=== PATIENT | male | born 1965 | race Caucasian/White ===

== ENCOUNTER 2016-08-10 20:02 | Emergency (ER) | payer OTHER ==
--- NOTE | 2016-08-10 22:42 | ED NURSING NOTES ---
Clinical Report - Nurses [facility] [address] [place] [address] 08/10/2016 20:01 Patient: THERESA ORTIZ TRIAGE Triage time 20:20 Aug 10 2016. Acuity: LEVEL 3. Chief Complaint: NAUSEA, VOMITING and DIARRHEA and (since Wednesday). Alert. No acute distress. --20:33 Reina Bhakta R.N. 20:20 08/10/16. BP: 141/93. HR: 65. RR: 18. O2 saturation: 100%. Temp: 98.2 F. Pain level now 0/10. --20:33 Reina Bhakta R.N. Weight: 68 kg stated. Height/Length: 70 inches Per Patient. BMI: 21.5. --20:19 Reina Bhakta R.N. Medications Multi Vitamin Mens Oral. Vitamin c Oral. --20:21 Reina Bhakta R.N. Stool softner. --20:31 Reina Bhakta R.N. Medication/allergy information source: the patient. --20:33 Reina Bhakta R.N. Allergies Lyrica. Definite Moderate (Acts like "speed"--talks alot) Morphine Sulfate. Definite Moderate(anxiety) ("Make me violent") --20:21 Reina Bhakta R.N. History Arrived by private vehicle. Historian: patient. Primary physician (none). ( Pt states Diarrhea and Vomiting since Wednesday.). Onset. (since Wednesday). He has had vomiting and diarrhea. Last oral intake by patient was ("cant keep anything done"). 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 PAST MEDICAL HX: Has not received seasonal influenza immunization. SOCIAL HX: Smoker- current status unknown. 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 (10 yearw ago, recovering). No alcohol use. No recent travel. He has had contact with a sick individual. (skilled nursing visit). No infectious disease exposure. NUTRITIONAL RISK ASSESSMENT: The nutritional risk assessment revealed no deficiencies. FUNCTIONAL ASSESSMENT: Functional assessment: no impairments noted. LEARNING NEEDS ASSESSMENT: The learning needs assessment revealed no barriers. SKIN INTEGRITY ASSESSMENT: Skin integrity risk assessment completed. No skin integrity risk identified. --20:33 Reina Bhakta R.N. PROBLEMS: Abscess. Infections. GI Bleeding. Abnormal Test. Bursitis. Chronic Back Pain. Tetanus Status. Folliculitis. Immunizations. Depression. Headache. Back Pain. Neck Pain. --20:31 Reina Bhakta R.N. ADDITIONAL SURGERIES: Appendectomy. Back Surgery. --20:31 Reina Bhakta R.N. Interventions ID band on patient. To room. --20:33 Reina Bhakat R.N. PHYSICAL ASSESSMENT Ambulatory to room. GENERAL / NEURO / PSYCH: Oriented X 4. Appears in no acute distress. RESPIRATORY: Respirations not labored. CVS: Capillary refill less than 2 seconds. GI / : The patient has had nausea and diarrhea. Abdomen soft. SKIN: Skin is warm and dry. --22:41 Reina Bhakta R.N. NURSING PROGRESS NOTES 21:00 08/10/2016 One (1) unsuccessful IV access attempt including the right upper arm. Applied bandage. --21:40 Reina Bhakta R.N. 21:15 08/10/2016 Zofran ODT (Ondansetron) PO 4 mg given. Allergies verified and confirmed 5 rights. --22:05 Reina Bhakta R.N. 21:30 08/10/2016 Three (3) unsuccessful IV access attempts including the left upper arm and antecubital space (attempted by YAZAN Malin, using US.). --21:41 Reina Bhakta R.N. ( Pt a very difficult IV stick, 3rd RN attempting now. Zofran 4mg ODT has bee given after 15 mins spent.). --21:48 Reina Bhakta R.N. 22:05 08/10/2016 TYLENOL W CODEINE (Acetaminophen-Codeine) PO 2 tab given. Allergies verified and confirmed 5 rights. --22:05 Reina Bhakta R.N. 22:08/10/2016 TYLENOL W CODEINE (Acetaminophen-Codeine) PO 20 mL given. Allergies verified and confirmed 5 rights. --22:21 Reina Bhakta R.N. ( PA informed that IV access was unsuccessful by 3 RN's. PO it is until further notice. Pt provided ice chips, stated he felt better with the Zofran. Pt opted for liquid T3 vs PO pill.). --22:42 Reina Bhakta R.N. DISPOSITION / DISCHARGE Departure time: 23:Aug 10 2016. Condition at departure: improved and stable. No learning barriers present. Patient verbalized understanding. Written instructions provided in Arabic. The patient was discharged by the physician library services assistant. He was discharged home. He left the Emergency Department ambulatory and via private vehicle. FALL RISK ASSESSMENT: Fall risk assessment completed. No fall risk identified. --23:03 Reina Bhakta R.N. 23:01 08/10/16. BP: 130/82. HR: 99. RR: 18. O2 saturation: 100%. Pain level now 0/10. --23:03 Reina Bhakta R.N. Locked/Released at 08/10/2016 23:03 by Reina Bhakta R.N.
--- NOTE | 2016-08-10 22:42 | ED CLINICAL REPORT ---
Clinical Report - Physicians/Mid Levels [facility] [address] [place] [address] 08/10/2016 20:01 Patient: THERESA ORTIZ Time Seen: 20:51 Aug 10 2016. Arrived- By private vehicle. Historian- patient. HISTORY OF PRESENT ILLNESS Chief Complaint: COUGH. This started 5 days and is still present. The patient has had a cough, chills and muscle aches. No sputum production, difficulty breathing, hoarseness or nasal discharge. (Patient reports bodyaches fatigue, abdominal pain, diarrhea over the last 5 days. No recent travel.). REVIEW OF SYSTEMS No headache, nausea, diarrhea, pedal edema or calf pain. No skin rash. All systems otherwise negative, except as recorded above. ADDITIONAL NOTES The nursing notes have been reviewed. PHYSICAL EXAM Vital Signs: 08/10/2016 20:20 BP: 141/93. HR: 65. RR: 18. O2 saturation: 100%. Temp: 98.2 F. Appearance: Alert. Eyes: Eyes normal inspection. ENT: Ears normal. Nose normal. Pharynx normal. Neck: Normal inspection. No meningeal signs or lymphadenopathy. CVS: Normal heart rate and rhythm. Heart sounds normal. Respiratory: No respiratory distress. Breath sounds normal. No retractions or decreased breath sounds. Back: Normal inspection. No CVA tenderness. Skin: Skin warm. Normal skin color. Neuro: Oriented X 3. LABS, X-RAYS, AND EKG Laboratory Tests: CBC w Diff: (BECKIE: 08/10/2016 22:15) ( MsgRcvd 08/10/2016 22:27) Final results Test Result Flag Units (Reference) WHITE BLOOD COUNT 13.2 H K/uL (4.5-11.5) RED BLOOD COUNT 5.44 M/uL (4.50-5.90) HEMOGLOBIN 16.6 gm/dL (13.5-17.5) HEMATOCRIT 48.2 % (41.0-53.0) MEAN CELL VOLUME 89 fL (80-100) MEAN CORPUSCULAR HGB 31 pg (26-34) MEAN CORPUSCULAR HGB CONC 34 g/dL (31-37) RED CELL DISTRIBUTION WIDTH 14.1 % (11.6-14.8) PLATELET COUNT 245 K/uL (150-400) NEUTROPHIL % 75.4 H % (50-75) LYMPH % 17.9 L % (25-40) MONO % 6.3 % (3-14) EOSINOPHIL % 0 % (0-4) BASOPHIL % 0.4 % (0-2) BMP: (BECKIE: 08/10/2016 22:15) ( MsgRcvd 08/10/2016 22:33) Final results Test Result Flag Units (Reference) GLUCOSE 120 H mg/dL (70-110) BUN 15 mg/dL (7-18) CREATININE 0.7 mg/dL (0.6-1.3) Estimated GFR >60 mL/min Estimated GFR- >60 mL/min Note: Persistent reduction over 3 months in eGFR<60 mL/min/1.73 m2 defines CKD. Patients with eGFR values>=60 mL/min/1.73 m2 may also have CKD if evidence ofpersistent proteinuria. Additional information may be foundat www.kidney.org. SODIUM 145 mmol/L (136-145) POTASSIUM 3.7 mmol/L (3.5-5.1) CHLORIDE 106 mmol/L (98-107) CARBON DIOXIDE 27 mmol/L (21-32) CALCIUM 9.4 mg/dL (8.5-10.1) . PROGRESS AND PROCEDURES Course of Care: Pt is stable. TO f/u outpatient. Slight luekocytosis and pt with no guarding/ tenderness, status post appendectomy. NO signs of bowel obstruction clinically able to tolerate po. SX consistent with viral disease process. 08/10/2016 20:20 BP: 141/93. HR: 65. RR: 18. O2 saturation: 100%. Temp: 98.2 F. Patient is stable. Symptoms better. Patient/family counseled. Differential Diagnosis: I considered viral bronchitis, laryngotracheobronchitis, viral pneumonia, bacterial bronchitis, mycoplasmal bronchitis, chlamydial bronchitis, bronchospasm and allergic bronchospasm as a possible cause of cough in this patient. This is a partial list of diagnoses considered. I considered sepsis, viral infection, peritonitis, intraabdominal abscess, cholecystitis, viral gastroenteritis, bacterial enterocolitis, diverticulitis, urinary tract infection and pyelonephritis as a possible cause of fever in this patient. This is a partial list of diagnoses considered. Disposition: Discharged. CLINICAL IMPRESSION Acute abdominal pain of undetermined cause. Acute viral syndrome INSTRUCTIONS Drink plenty of fluids. Prescription Medications: Tylenol with Codeine Tylenol #3 (30 mg / 300 mg) : take 1 tablet orally every 6 hours as needed for pain. Dispense fifteen (15). No refill. Substitution is permissible. Zofran (orally disintegrating tablets) 4 mg: take 1 orally every 6 hours as needed for nausea. Dispense ten (10). No refill. Substitution is permissible. Ibuprofen 600 mg tablets: take 1 tablet orally every 8 hours for 3 days, as needed for pain. Dispense fifteen (15). No refill. Follow-up: Follow up with your doctor in three days. (Electronically signed by Joanie Talley P.A.-C 08/10/2016 22:47)
--- NOTE | 2016-08-10 22:42 | ED NURSING NOTES ---
Clinical Report - Nurses [facility] [address] [place] [address] 08/10/2016 20:01 Patient: THERESA ORTIZ TRIAGE Triage time 20:20 Aug 10 2016. Acuity: LEVEL 3. Chief Complaint: NAUSEA, VOMITING and DIARRHEA and (since Wednesday). Alert. No acute distress. --20:33 Reina Bhakta R.N. 20:20 08/10/16. BP: 141/93. HR: 65. RR: 18. O2 saturation: 100%. Temp: 98.2 F. Pain level now 0/10. --20:33 Reina Bhakta R.N. Weight: 68 kg stated. Height/Length: 70 inches Per Patient. BMI: 21.5. --20:19 Reina Bhakta R.N. Medications Multi Vitamin Mens Oral. Vitamin c Oral. --20:21 Reina Bhakta R.N. Stool softner. --20:31 Reina Bhakta R.N. Medication/allergy information source: the patient. --20:33 Reina Bhakta R.N. Allergies Lyrica. Definite Moderate (Acts like "speed"--talks alot) Morphine Sulfate. Definite Moderate(anxiety) ("Make me violent") --20:21 Reina Bhakta R.N. History Arrived by private vehicle. Historian: patient. Primary physician (none). ( Pt states Diarrhea and Vomiting since Wednesday.). Onset. (since Wednesday). He has had vomiting and diarrhea. Last oral intake by patient was ("cant keep anything done"). 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 PAST MEDICAL HX: Has not received seasonal influenza immunization. SOCIAL HX: Smoker- current status unknown. 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 (10 yearw ago, recovering). No alcohol use. No recent travel. He has had contact with a sick individual. (residential visit). No infectious disease exposure. NUTRITIONAL RISK ASSESSMENT: The nutritional risk assessment revealed no deficiencies. FUNCTIONAL ASSESSMENT: Functional assessment: no impairments noted. LEARNING NEEDS ASSESSMENT: The learning needs assessment revealed no barriers. SKIN INTEGRITY ASSESSMENT: Skin integrity risk assessment completed. No skin integrity risk identified. --20:33 Reina Bhakta R.N. PROBLEMS: Abscess. Infections. GI Bleeding. Abnormal Test. Bursitis. Chronic Back Pain. Tetanus Status. Folliculitis. Immunizations. Depression. Headache. Back Pain. Neck Pain. --20:31 Reina Bhakta R.N. ADDITIONAL SURGERIES: Appendectomy. Back Surgery. --20:31 Reina Bhakta R.N. Interventions ID band on patient. To room. --20:33 Reina Bhakta R.N. PHYSICAL ASSESSMENT Ambulatory to room. GENERAL / NEURO / PSYCH: Oriented X 4. Appears in no acute distress. RESPIRATORY: Respirations not labored. CVS: Capillary refill less than 2 seconds. GI / : The patient has had nausea and diarrhea. Abdomen soft. SKIN: Skin is warm and dry. --22:41 Reina Bhakta R.N. NURSING PROGRESS NOTES 21:00 08/10/2016 One (1) unsuccessful IV access attempt including the right upper arm. Applied bandage. --21:40 Reina Bhakta R.N. 21:15 08/10/2016 Zofran ODT (Ondansetron) PO 4 mg given. Allergies verified and confirmed 5 rights. --22:05 Reina Bhakta R.N. 21:30 08/10/2016 Three (3) unsuccessful IV access attempts including the left upper arm and antecubital space (attempted by YAZAN Malin, using US.). --21:41 Reina Bhakta R.N. ( Pt a very difficult IV stick, 3rd RN attempting now. Zofran 4mg ODT has bee given after 15 mins spent.). --21:48 Reina Bhakta R.N. 22:05 08/10/2016 TYLENOL W CODEINE (Acetaminophen-Codeine) PO 2 tab given. Allergies verified and confirmed 5 rights. --22:05 Reina Bhakta R.N. 22:08/10/2016 TYLENOL W CODEINE (Acetaminophen-Codeine) PO 20 mL given. Allergies verified and confirmed 5 rights. --22:21 Reina Bhakta R.N. ( PA informed that IV access was unsuccessful by 3 RN's. PO it is until further notice. Pt provided ice chips, stated he felt better with the Zofran. Pt opted for liquid T3 vs PO pill.). --22:42 Reina Bhakta R.N. DISPOSITION / DISCHARGE Departure time: 23:Aug 10 2016. Condition at departure: improved and stable. No learning barriers present. Patient verbalized understanding. Written instructions provided in Maori. The patient was discharged by the physician graphic design assistant. He was discharged home. He left the Emergency Department ambulatory and via private vehicle. FALL RISK ASSESSMENT: Fall risk assessment completed. No fall risk identified. --23:03 Reina Bhakta R.N. 23:01 08/10/16. BP: 130/82. HR: 99. RR: 18. O2 saturation: 100%. Pain level now 0/10. --23:03 Reina Bhakta R.N. Locked/Released at 08/10/2016 23:03 by Reina Bhakta R.N.
--- NOTE | 2016-08-10 22:42 | ED ORDER SUMMARY ---
..... Patient: THERESA ORTIZ OrderSheet [facility] VisitID: [id number] [place] [address] 51y, M Registration Date/Time: 08/10/2016 ORDER SHEET Weight: 68.0 kg (stated) Allergies: Lyrica, Morphine Sulfate GENERAL ORDERS: CBC w Diff Urgent (20:34 08/10/2016 EKoroleva P.A.-C) (Ack 20:41 LMuller) BMP Urgent (20:34 08/10/2016 EKoroleva P.A.-C) (Ack 20:41 LMuller) MEDICATION ORDERS: Zofran ODT PO 4 mg (NOW) (20:57 08/10/2016 EKoroleva P.A.-C) (22:05 SBalde R.N.) Tylenol w Codeine PO 2 tabs (HIGH ALERT MEDICATION, NOW) (22:04 08/10/2016 EKoroleva P.A.-C) (22:05 SBalde R.N.) (Cancelled: Other22:11 EKoroleva P.A.-C) Tylenol w Codeine PO 20mL (HIGH ALERT MEDICATION, NOW) (22:12 08/10/2016 EKoroleva P.A.-C) (22:21 SBalde R.N.) IV FLUIDS: IV NS : initial bolus 1000 mL (1000 mL/hr), then 1000 mL/hr for X1 (NOW); Talon (20:34 08/10/2016 EKoroleva P.A.-C) (Cancelled: Change in patient [id number]:21 SBalde R.N.) Toradol IV 30 mg (NOW) (20:34 08/10/2016 EKoroleva P.A.-C) (Cancelled: Change in patient [id number]:21 SBalde R.N.) ORDER SHEET NOTES: [Electronically signed by Joanie TalleyABrooklyn-C (22:47 08/10/2016)] [Electronically signed by Reina Bhakta R.N. (23:03 08/10/2016)] [Electronically locked/signed by Reina Bhakta R.N. (23:03 08/10/2016)]
--- NOTE | 2016-08-10 22:42 | ED ORDER SUMMARY ---
..... Patient: THERESA ORTIZ OrderSheet [facility] VisitID: [id number] [place] [address] 51y, M Registration Date/Time: 08/10/2016 ORDER SHEET Weight: 68.0 kg (stated) Allergies: Lyrica, Morphine Sulfate GENERAL ORDERS: CBC w Diff Urgent (20:34 08/10/2016 EKoroleva P.A.-C) (Ack 20:41 LMuller) BMP Urgent (20:34 08/10/2016 EKoroleva P.A.-C) (Ack 20:41 LMuller) MEDICATION ORDERS: Zofran ODT PO 4 mg (NOW) (20:57 08/10/2016 EKoroleva P.A.-C) (22:05 SBalde R.N.) Tylenol w Codeine PO 2 tabs (HIGH ALERT MEDICATION, NOW) (22:04 08/10/2016 EKoroleva P.A.-C) (22:05 SBalde R.N.) (Cancelled: Other22:11 EKoroleva P.A.-C) Tylenol w Codeine PO 20mL (HIGH ALERT MEDICATION, NOW) (22:12 08/10/2016 EKoroleva P.A.-C) (22:21 SBalde R.N.) IV FLUIDS: IV NS : initial bolus 1000 mL (1000 mL/hr), then 1000 mL/hr for X1 (NOW); Talon (20:34 08/10/2016 EKoroleva P.A.-C) (Cancelled: Change in patient [id number]:21 SBalde R.N.) Toradol IV 30 mg (NOW) (20:34 08/10/2016 EKoroleva P.A.-C) (Cancelled: Change in patient :21 SBalde R.N.) ORDER SHEET NOTES: [Electronically signed by Joanie TalleyABrooklyn-C (22:47 08/10/2016)] [Electronically signed by Reina Bhakta R.N. (23:03 08/10/2016)] [Electronically locked/signed by Reina Bhakta R.N. (23:03 08/10/2016)]
--- NOTE | 2016-08-10 23:04 | ED MED RECONCILIATION SUMMARY ---
Patient: THERESA ORTIZ Medication Reconciliation Report [facility] VisitID: [id number] [place] [address] 51y, M Registration Date/Time: 08/10/2016 Weight: 68.0 kg Height/Length: 70 in. BMI: 21.5 ALLERGIES: Lyrica, Morphine Sulfate The patient's Home Medications are listed below: THE FOLLOWING MEDICATIONS NEED TO BE RECONCILED: Multi Vitamin Mens Oral Stool softner Vitamin c Oral The source(s) of the original Home Medication information: patient The following Medications were given to the patient in the Emergency Department: Zofran ODT [PO] PO 4 mg, administered: 08/10/2016 9:15:00 PM TYLENOL W CODEINE [PO] PO 2 tab, administered: 08/10/2016 10:05:00 PM TYLENOL W CODEINE [PO] PO 20 mL, administered: 08/10/2016 10:21:00 PM The following Medications were prescribed to the patient: Tylenol with Codeine Tylenol #3 (30 mg / 300 mg) : take 1 tablet orally every 6 hours as needed for pain. Dispense fifteen (15). No refill. Substitution is permissible. -- Joanie Talley, P.A.-C Zofran (orally disintegrating tablets) 4 mg: take 1 orally every 6 hours as needed for nausea. Dispense ten (10). No refill. Substitution is permissible. -- Joanie Talley, P.A.-C Ibuprofen 600 mg tablets: take 1 tablet orally every 8 hours for 3 days, as needed for pain. Dispense fifteen (15). No refill. -- Joanie Talley, P.A.-C
--- NOTE | 2016-08-10 23:04 | ED MAR SUMMARY ---
..... Medication Administration Record [facility] [address] [place] [address] Patient: THERESA ORTIZ Visit ID: [id number] 51y, M Weight: 68.0 kg Height/Length: 70 in BMI: 21.5 ALLERGIES: Lyrica, Morphine Sulfate Given 21:15 08/10/2016 Reina Bhakta R.N. Medication Administered: ZOFRAN ODT [PO] (ONDANSETRON), Dose: 4 mg PO. Medication Ordered: Zofran ODT PO 4 mg (NOW). Given 22:05 08/10/2016 Reina Bhakta R.N. Medication Administered: TYLENOL W CODEINE [PO] (ACETAMINOPHEN-CODEINE), Dose: 2 tab PO. Medication Ordered: Tylenol w Codeine PO 2 tabs (HIGH ALERT MEDICATION, NOW). Given 22:21 08/10/2016 Reina Bhakta R.NBrooklyn Medication Administered: TYLENOL W CODEINE [PO] (ACETAMINOPHEN-CODEINE), Dose: 20 mL PO. Medication Ordered: Tylenol w Codeine PO 20mL (HIGH ALERT MEDICATION, NOW).
--- NOTE | 2016-08-10 23:04 | ED DISCHARGE INSTRUCTIONS ---
Patient: THERESA ORTIZ General Instructions [facility] VisitID: [id number] [place] [address] 51y, M Registration Date/Time: 08/10/2016 Acute abdominal pain of undetermined cause. Acute viral syndrome INSTRUCTIONS Drink plenty of fluids. Prescription Medications: Tylenol with Codeine Tylenol #3 (30 mg / 300 mg) : take 1 tablet orally every 6 hours as needed for pain. Dispense fifteen (15). No refill. Substitution is permissible. Zofran (orally disintegrating tablets) 4 mg: take 1 orally every 6 hours as needed for nausea. Dispense ten (10). No refill. Substitution is permissible. Ibuprofen 600 mg tablets: take 1 tablet orally every 8 hours for 3 days, as needed for pain. Dispense fifteen (15). No refill. Follow-up: Follow up with your doctor in three days. ADDITIONAL INFORMATION Abdominal Pain,Uncertain Cause [Male] Based on your visit today, the exact cause of your abdominalpain is not clear. Your exam and tests do not indicate a dangerous cause at this time. However, the signs of a serious problem may take more time to appear. Although your evaluation was reassuring today, sometimes early in the course of many conditions, exam and lab tests can appear normal. Therefore, it is important for you to watch for any new symptoms or worsening of your condition. Causes It may not be obvious what caused your symptoms. Pay attention to things that do seem to make your symptoms worse or better and discuss this with your doctor when you follow up. Diagnosis The evaluation of abdominal pain in the emergency department may onlyrequire an exam by the doctor or it may include blood, urine or imaging studies, depending on many factors. Sometimes exams and tests can identify a cause but in many cases, a clear cause is not found. Further testing at follow up visits may help to suggest a clear diagnosis. Home Care Rest as much as possible until your next exam. Try to avoid any medications (unless otherwise directed by your doctor), foods, activities, or other factors that you may have contributed to your symptoms. Try to eat foods that you know that you have tolerated well in the past. Certain diets may be recommended for some conditions that cause abdominal pain. However, since the cause of your symptoms may not be clear, discuss your diet more with your primary care provider or specialist for further recommendations. Eating several small meals per day as opposed to 2 or 3 larger meals may help. Monitor closely for anything that may make your symptoms worse or better. Pay close attention to symptoms below that may indicate worsening of your condition. Follow Up and Precautions See your doctoras instructed or sooneror if your symptoms are not improving.In some cases, you may need more testing. When to Seek Medical Attention Contact your doctor or see medical attention ifany of the following occur: Pain is becoming worse You are unable to take your medications due to excessive vomiting Swelling of the abdomen Fever of 100.4F (38C) or higher, or as directed by your health care provider Blood in vomit or bowel movements (dark red or black color) Jaundice (yellow color of eyes and skin) New onset of weakness, dizziness or fainting New onset of chest, arm, back, neck or jaw pain Viral Syndrome (Adult) A viral illness may cause a number of symptoms. The symptoms depend on the part of the body that the virus affects. If it settles in the nose, throat, and lungs, it may cause cough, sore throat, congestion, and sometimes headache. If it settles in the stomach and intestinal tract, it may cause vomiting and diarrhea. Sometimes it causes vague symptoms like "aching all over," feeling tired, loss of appetite, or fever. A viral illness usually lasts1 to 2 weeks, but sometimes it lasts longer. In some cases, a more serious infection can look like a viral syndrome in the first few days of the illness. You may need anotherexam and additional teststo know the difference.Watch for the warning signs listed below. Home care Follow these guidelines for taking care of yourself at home: If symptoms are severe, rest at home for the first 2 to 3 days. Stay away from cigarette smoke - both your smoke and the smoke from others. You may useacetaminophen or ibuprofen for fever, muscle aching, and headache, unless another medicine was prescribed for this.If you have chronic liver or kidney disease or ever had a stomach ulcer or GI bleeding, talk with your doctor before using these medicinesNo one who is younger than 18 and ill with a fever should take aspirin. It may cause severe liver damage. Your appetite may be poor, so a light diet is fine. Avoid dehydration by drinking 8 to 12 8-ounce glasses of fluids each day. This may include water; orange juice; lemonade; apple, grape, and cranberry juice; clear fruit drinks; electrolyte replacement and sports drinks; and decaffeinated teas and coffee. If you have been diagnosed with a kidney disease, ask your doctor how much and what types of fluids you should drink to prevent dehydration. If you have kidney disease, drinking too much fluid can cause it build up in the your body and be dangerous to your health. Uqrn-hzs-aqpnhyc remedies won't shorten the length of the illness but may be helpful forcough, sore throat; and nasal and sinus congestion. Don't use decongestants if you have high blood pressure. Follow-up care Follow up with your health care provider if you do not improve over the next week. When to seek medical care Get prompt medical attention if any of these occur: Cough with lots of colored sputum (mucus) or blood in your sputum Chest pain, shortness of breath, wheezing, or difficulty breathing Severe headache; face, neck, or ear pain Severe, constant pain in the lower right side of your belly (abdominal) Continued vomiting (cant keep liquids down) Frequent diarrhea (more than 5 times a day); blood (red or black color) or mucus in diarrhea Feeling weak, dizzy, or like you are going to faint Extreme thirst Fever of 100.4 F (38 C) oral or higher, not better with fever medication Convulsion [place] Diet A bland diet is used for patients with an upset stomach. It consists of foods that are mild and easy to digest. It is better to eat small frequent meals rather than three large meals a day. BEVERAGES OK: Fruit juices, non-caffeinated teas and coffee, non-carbonated anderson AVOID: Carbonated beverage, caffeinated tea and coffee, all alcoholic beverages BREAD OK: Refined white, wheat or rye bread, ollie or soda crackers, [place] toast, plain rolls, bagels AVOID: Whole-grain bread CEREAL OK: Refined cereals: cooked or ready to eat AVOID: Whole grain cereals and granola, or those containing bran, seeds or nuts DESSERTS OK: Peanut butter and all others except those to "avoid" AVOID: Chocolate, cocoa, coconut, popcorn, nuts, seeds, jam, marmalade FRUITS OK: Canned, cooked, frozen or fresh fruits without seeds or tough skin AVOID: Olives, skin and seeds of fruit MEATS OK: All fresh or preserved meat, fish and fowl AVOID: Any that are prepared with those spices to "avoid" CHEESE & EGGS OK: Eggs, cottage cheese, cream cheese, other cheeses AVOID: All cheeses made with those spices to "avoid" POTATOES & PASTA OK: Potato, rice, macaroni, noodles, spaghetti AVOID: None SOUPS OK: All soups without heavy seasoning AVOID: Soups made with those spices to "avoid" VEGETABLES OK: Canned, cooked, fresh or frozen mildly flavored vegetables without seeds, skins or coarse fiber AVOID: Vegetables prepared with those spices to "avoid"; skin and seeds of vegetables and those with coarse fiber SPICES OK: Salt, lemon and [place] juice, vinegar, all extracts, vanesa, cinnamon, thyme, mace, allspice, paprika AVOID: [place] powder, cloves, pepper, seed spices, garlic, gravy pickles, highly seasoned salad dressings Clear Liquid Diet Clear liquids are any liquid that you can see through as well as those that are very easy to digest. This is used while the body is recovering from irritation or infection of the stomach or intestinal tract. It may also be used before special procedures or surgery. This diet is to be used no more than three days. You may include the following items. Adults Adults should drink a total of 23 quarts of liquid per day. It may be easier to drink small frequent servings rather than a few large ones. Liquids can include: Fruit juices.Strained orange juice or lemonade (no pulp), apple, grape and cranberry juice, clear fruit drinks, sports drinks Beverages.Sport drinks, sodas, mineral water (plain or flavored), tea, black coffee, liquid gelatin (add twice the recommended amount of water) Soups.Clear broth, consomm, bouillon Desserts.Plain gelatin, popsicles, fruit juice bars Children Over 2 years old The following liquids are acceptable for children over age 2: Fruit juices.Strained orange juice or lemonade (no pulp), apple, grape and cranberry juice, clear fruit drinks Beverages. Sports drinks, sodas, mineral water (plain or flavored), tea, liquid gelatin (add twice the recommended amount of water) Soups. Clear broth, consomm, bouillon Desserts. Plain gelatin, popsicles, fruit juice bars Children under 2 years old Oral rehydration fluids such are available at drug stores and most grocery stores without a prescription. Ondansetron Hydrochloride Oral tablet What is this medicine? ONDANSETRON (on DESTINEY se lenin) is used to treat nausea and vomiting caused by chemotherapy. It is also used to prevent or treat nausea and vomiting after surgery. How should I use this medicine? Take this medicine by mouth with a glass of water. Follow the directions on your prescription label. Take your doses at regular intervals. Do not take your medicine more often than directed. Talk to your senior statistician regarding the use of this medicine in children. Special care may be needed. What side effects may I notice from receiving this medicine? Side effects that you should report to your doctor or health health and social care teacher as soon as possible: allergic reactions like skin rash, itching or hives, swelling of the face, lips or tongue breathing problems dizziness fast or irregular heartbeat feeling faint or lightheaded, falls fever and chills swelling of the hands or feet tightness in the chest Side effects that usually do not require medical attention (report to your doctor or health health and social care teacher if they continue or are bothersome): constipation or diarrhea headache What may interact with this medicine? Do not take this medicine with any of the following medications: -apomorphine -cisapride -dofetilide -dronedarone -pimozide -thioridazine -ziprasidone This medicine may also interact with the following medications: -carbamazepine -phenytoin -rifampicin -tramadol -other medicines that prolong the QT interval (cause an abnormal heart rhythm) What if I miss a dose? If you miss a dose, take it as soon as you can. If it is almost time for your next dose, take only that dose. Do not take double or extra doses. Where should I keep my medicine? Keep out of the reach of children. Store between 2 and 30 degrees C (36 and 86 degrees F). Throw away any unused medicine after the expiration date. What should I tell my health care provider before I take this medicine? They need to know if you have any of these conditions: heart disease history of irregular heartbeat liver disease low levels of magnesium or potassium in the blood an unusual or allergic reaction to ondansetron, granisetron, other medicines, foods, dyes, or preservatives or trying to get breast-feeding What should I watch for while using this medicine? Check with your doctor or health health and social care teacher right away if you have any sign of an allergic reaction. You have been given the following additional information: Abdominal Pain, Unknown Cause, (Male) Viral Syndrome (Adult) Diet, [place] (Adult) Diet, Clear Liquid Ondansetron Hydrochloride Oral tablet (Electronically signed by Joanie Talley P.A.-C 08/10/2016 22:47)
--- NOTE | 2016-08-10 23:04 | ED MAR SUMMARY ---
..... Medication Administration Record [facility] [address] [place] [address] Patient: THERESA ORTIZ Visit ID: [id number] 51y, M Weight: 68.0 kg Height/Length: 70 in BMI: 21.5 ALLERGIES: Lyrica, Morphine Sulfate Given 21:15 08/10/2016 Reina Bhakta R.N. Medication Administered: ZOFRAN ODT [PO] (ONDANSETRON), Dose: 4 mg PO. Medication Ordered: Zofran ODT PO 4 mg (NOW). Given 22:05 08/10/2016 Reina Bhakta R.N. Medication Administered: TYLENOL W CODEINE [PO] (ACETAMINOPHEN-CODEINE), Dose: 2 tab PO. Medication Ordered: Tylenol w Codeine PO 2 tabs (HIGH ALERT MEDICATION, NOW). Given 22:21 08/10/2016 [place]ina [place]akta [place] Medication Administered: TYLENOL W CODEINE [PO] (ACETAMINOPHEN-CODEINE), Dose: 20 mL PO. Medication Ordered: Tylenol w Codeine PO 20mL (HIGH ALERT MEDICATION, NOW).
--- NOTE | 2016-08-10 23:04 | ED MED RECONCILIATION SUMMARY ---
Patient: THERESA ORTIZ Medication Reconciliation Report [facility] VisitID: [id number] [place] [address] 51y, M Registration Date/Time: 08/10/2016 Weight: 68.0 kg Height/Length: 70 in. BMI: 21.5 ALLERGIES: Lyrica, Morphine Sulfate The patient's Home Medications are listed below: THE FOLLOWING MEDICATIONS NEED TO BE RECONCILED: Multi Vitamin Mens Oral Stool softner Vitamin c Oral The source(s) of the original Home Medication information: patient The following Medications were given to the patient in the Emergency Department: Zofran ODT [PO] PO 4 mg, administered: 08/10/2016 9:15:00 PM TYLENOL W CODEINE [PO] PO 2 tab, administered: 08/10/2016 10:05:00 PM TYLENOL W CODEINE [PO] PO 20 mL, administered: 08/10/2016 10:21:00 PM The following Medications were prescribed to the patient: Tylenol with Codeine Tylenol #3 (30 mg / 300 mg) : take 1 tablet orally every 6 hours as needed for pain. Dispense fifteen (15). No refill. Substitution is permissible. -- Joanie Talley, P.A.-C Zofran (orally disintegrating tablets) 4 mg: take 1 orally every 6 hours as needed for nausea. Dispense ten (10). No refill. Substitution is permissible. -- Joanie Talley, P.A.-C Ibuprofen 600 mg tablets: take 1 tablet orally every 8 hours for 3 days, as needed for pain. Dispense fifteen (15). No refill. -- Joanie Talley, P.A.-C
== END 2016-08-10 22:56 | disposition home or self-care (01) ==
LOC: ED SRH 20:02
DX: B34.9 Viral infection, unspecified (principal); R10.9 Unspecified abdominal pain; R11.2 Nausea with vomiting, unspecified; R19.7 Diarrhea, unspecified; F17.210 Nicotine dependence, cigarettes, uncomplicated
CPT/HCPCS: 90047; 90074; 95059

== ENCOUNTER 2016-08-12 05:28 | Emergency (ER) | payer OTHER ==
--- NOTE | 2016-08-12 08:40 | ED ORDER SUMMARY ---
..... Patient: THERESA ORTIZ OrderSheet [facility] VisitID: [id number] [place] [address] 51y, M Registration Date/Time: 08/12/2016 ORDER SHEET Weight: 68.0 kg Allergies: morphine, Lyrica GENERAL ORDERS: CBC w Diff Urgent (06:00 08/12/2016 Zakiya PEREZ) (Ack 7:05 LMuller) (7:45 LMuller) CMP Urgent (06:00 08/12/2016 Zakiya PEREZ) (Ack 7:05 LMuller) (7:45 LMuller) UA-Culture if indicated Urgent (06:00 08/12/2016 Zakiya PEREZ) (Ack 7:05 LMuller) (8:14 JBoardley R.N.) Amylase Urgent (06:00 08/12/2016 Zakiya PEREZ) (Ack 7:05 LMuller) (7:45 LMuller) Lipase Urgent (06:00 08/12/2016 Zakiya PEREZ) (Ack 7:05 LMuller) (7:45 LMuller) Urine Drug Screen Urgent (06:00 08/12/2016 Zakiya PEREZ) (Ack 7:05 LMuller) (8:13 JBoardley R.N.) MEDICATION ORDERS: IV FLUIDS: IV NS : initial bolus 1000 mL (1000 mL/hr), then 1000 mL/hr for 4h (NOW); Urgent (05:59 08/12/2016 Zakiya PEREZ) (Ack 7:36 JBoardley R.N.) (8:14 JBoardley R.N.) Zofran IV 4 mg (NOW) (06:00 08/12/2016 Zakiya PEREZ) (Ack 7:36 JBoardley R.N.) (8:14 JBoardley R.N.) ORDER SHEET NOTES: [Electronically signed by Ron Lang MD (09:14 08/12/2016)] [Electronically signed by Dipak Abel R.N. (09:51 08/12/2016)] [Electronically locked/signed by Dipak Abel R.N. (09:51 08/12/2016)]
--- NOTE | 2016-08-12 08:40 | ED CLINICAL REPORT ---
Clinical Report - Physicians/Mid Levels [facility] [address] [place] [address] 08/12/2016 5:28 Patient: THERESA ORTIZ Time Seen: 05:54. Arrived- By private vehicle. Historian- patient. HISTORY OF PRESENT ILLNESS Chief Complaint: VOMITING. This started about 4 - 5 days ago and is still present. It was gradual in onset and has been waxing/waning. No recent travel. He has had nausea and diarrhea. He has had vomiting. The vomiting has occurred numerous times. No blood-tinged emesis or coffee-grounds emesis. No bloody stools or history of possible bad food exposure. Has not recently been camping or on antibiotics. He has had contact with a sick individual. (his mother has pneumonia and C. dif). The illness is described as severe. Recent medical care: The patient was seen recently at this facility. Seen for similar symptoms. REVIEW OF SYSTEMS The patient has had chills and experienced sweats. No fever, calf pain, chest pain, cough or difficulty breathing. No pedal edema, palpitations or urinary problems. All systems otherwise negative, except as recorded above. PAST HISTORY Problems: Viral Disease. Abdominal Pain. Sick Contact. Abscess. Infections. GI Bleeding. Bursitis. Chronic Back Pain. Tetanus Status. Folliculitis. Depression. Headache. Neck Pain. Additional Surgeries: Appendectomy. Back Surgery. Medications: None. Allergies: Lyrica. morphine. SOCIAL HISTORY Current every day heavy tobacco smoker (cigarette)- 1 pack per day. No alcohol use or drug use. FAMILY HISTORY Denies family medical history. ADDITIONAL NOTES The nursing notes have been reviewed. PHYSICAL EXAM Vital Signs: 08/12/2016 05:37 BP: 118/75. HR: 65. RR: 18. O2 saturation: 100%. Temp: 97.6 F. Have been reviewed. Appearance: Alert. No acute distress. Eyes: Pupils equal, round and reactive to light. ENT: Pharynx normal. Neck: Normal inspection. Neck supple. CVS: Normal heart rate and rhythm. Heart sounds normal. Abdomen: Soft and nontender. Bowel sounds normal. No organomegaly. No mass. Back: Normal inspection. No CVA tenderness. Extremities: Extremities exhibit normal ROM. No calf tenderness. No lower extremity edema. LABS, X-RAYS, AND EKG Laboratory Tests: UA-Culture if indicated: (BECKIE: 08/12/2016 08:00) ( MsgRcvd 08/12/2016 08:28) Final results Test Result Flag Units (Reference) URINE COLOR YELLOW URINE APPEARANCE CLOUDY URINE GLUCOSE NEGATIVE (NEGATIVE) URINE BILIRUBIN NEGATIVE (NEGATIVE) URINE KETONE 1+ (NEGATIVE) URINE SPECIFIC GRAVITY 1.010 (1.010-1.030) URINE PH 8.5 H (5.0-8.0) URINE PROTEIN NEGATIVE (NEGATIVE) URINE UROBILINOGEN 1.0 EU/dL (0.2-1.0) URINE NITRITE NEGATIVE (NEGATIVE) URINE BLOOD NEGATIVE (NEGATIVE) URINE LEUK ESTERASE NEGATIVE (NEGATIVE) URINE RBC NONE SEEN rbc/hpf (0-1) URINE WBC 1-3 wbc/hpf (0-1) URINE EPITHELIAL CELLS NONE SEEN EPI/hpf (0-5) URINE BACTERIA TRACE (<1+) (NONE SEEN) URINE COMMENT CULT NOT INDICATED 2+ AMORPHOUS PHOSPHATESURINE CULTURES ARE SET-UP BASED ON THE FOLLOWING CRITERIA:POSITIVE NITRITEPOSITIVE LEUKOCYTE ESTERASEGREATER THAN 10 WHITE BLOOD CELLSMODERATE (2+) OR GREATER BACTERIA CBC w Diff: (BECKIE: 08/12/2016 07:05) ( MsgRcvd 08/12/2016 07:15) Final results Test Result Flag Units (Reference) WHITE BLOOD COUNT 10.0 K/uL (4.5-11.5) RED BLOOD COUNT 5.16 M/uL (4.50-5.90) HEMOGLOBIN 15.4 gm/dL (13.5-17.5) HEMATOCRIT 46.4 % (41.0-53.0) MEAN CELL VOLUME 90 fL (80-100) MEAN CORPUSCULAR HGB 30 pg (26-34) MEAN CORPUSCULAR HGB CONC 33 g/dL (31-37) RED CELL DISTRIBUTION WIDTH 14.0 % (11.6-14.8) PLATELET COUNT 210 K/uL (150-400) NEUTROPHIL % 61.1 % (50-75) LYMPH % 30.0 % (25-40) MONO % 7.9 % (3-14) EOSINOPHIL % 0.5 % (0-4) BASOPHIL % 0.5 % (0-2) Urine Drug Screen: (BECKIE: 08/12/2016 08:00) ( MsgRcvd 08/12/2016 08:31) Final results Test Result Flag Units (Reference) AMPHETAMINE/METHAMPHETAMINE NEGATIVE (NEGATIVE) BARBITURATE NEGATIVE (NEGATIVE) BENZODIAZEPINE POSITIVE H (NEGATIVE) CANNABINOID NEGATIVE (NEGATIVE) COCAINE NEGATIVE (NEGATIVE) ECSTASY NEGATIVE (NEGATIVE) METHADONE NEGATIVE (NEGATIVE) OPIATE POSITIVE H (NEGATIVE) The urine drug screen is a qualitative screening test fordrug overdose and abuse. All screen results should beconsidered as presumptive.Drugs screened for are as follows:BenzodiazepinesCocaineAmphetamines/MetamphetaminesTHC (Tetrahydrocannabinol)OpiatesBarbituratesEcstasyMethadonePositive results are unconfirmed. For confirmation, notifythe lab for the specimen to be sent to the reference lab.All confirmations must be performed by a differentmethodology.The ingestion of natural herbal and plant productscontaining Ephedra/Ephedra metabolites can produce in urineone or more substances capable of cross reacting withamphetamine/methamphetamine immunoassays. These testsprovide a preliminary result only. A more specificalternative chemical method must be used to obtain aconfirmed analytical result. CMP: (BECKIE: 08/12/2016 07:05) ( MsgRcvd 08/12/2016 08:06) Final results Test Result Flag Units (Reference) GLUCOSE 106 mg/dL (70-110) BUN 13 mg/dL (7-18) CREATININE 0.7 mg/dL (0.6-1.3) Estimated GFR >60 mL/min Estimated GFR- >60 mL/min Note: Persistent reduction over 3 months in eGFR<60 mL/min/1.73 m2 defines CKD. Patients with eGFR values>=60 mL/min/1.73 m2 may also have CKD if evidence ofpersistent proteinuria. Additional information may be foundat [email or web address].org. SODIUM 144 mmol/L (136-145) POTASSIUM 4.1 mmol/L (3.5-5.1) Slightly hemolyzed specimen CHLORIDE 105 mmol/L (98-107) CARBON DIOXIDE 27 mmol/L (21-32) CALCIUM 8.8 mg/dL (8.5-10.1) TOTAL PROTEIN 6.9 g/dL (6.4-8.2) ALBUMIN 3.8 g/dL (3.3-5.0) BILIRUBIN, TOTAL 0.7 mg/dL (0.0-1.0) ALKALINE PHOSPHATASE 52 U/L (46-116) AST (SGOT) 6 L U/L (15-37) Slightly hemolyzed specimen ALT (SGPT) 19 U/L (12-78) LIPASE 134 U/L (73-393) AMYLASE 43 U/L (25-115) . PROGRESS AND PROCEDURES Patient/family counseled. Old medical records reviewed. Disposition: Discharged. Condition: stable. CLINICAL IMPRESSION Abdominal pain of undetermined cause. INSTRUCTIONS No driving or operating machinery while taking medication. Drink plenty of fluids. (may continue the use of your Tylenol with Codeine and Zofran as previously prescribed as discussed.). Warnings: Further evaluation is necessary. Prescription Medications: Phenergan 25 mg suppositories: insert 1 rectally every 6 hours as needed for nausea. Dispense five (5). No refill. Substitution is permissible Understanding of the discharge instructions verbalized by patient. Follow-up with: [facility], , , [address], , [place], [address] Follow up today. Call for the next available appointment. (Electronically signed by Ron Lang MD 08/12/2016 9:14)
--- NOTE | 2016-08-12 08:40 | ED NURSING NOTES ---
Clinical Report - Nurses [facility] [address] [place] [address] 08/12/2016 5:28 Patient: THERESA ORTIZ TRIAGE Triage time 0530. Acuity: LEVEL 4. Chief Complaint: "FLU". Alert. No acute distress. --05:40 Dea Kaufman 05:37 08/12/16. BP: 118/75. HR: 65. RR: 18. O2 saturation: 100%. Temp: 97.6 F. Pain level now 04/20. --05:40 Dea Kaufman Acuity: LEVEL 3. --08:50 Dipak Abel R.N. Weight: 68 kg. Height/Length: 70 inches. BMI: 21.5. --05:37 Dea Kaufman. Medications Zofran Oral. --08:48 Dipak Abel R.N. Tylenol with Codeine #3 Oral. --08:48 Dipak Abel R.N. Valium Oral, , old rx from back surgery. --08:48 Dipak Abel R.N. The following entry was struck by Dipak Abel R.N., 08:48 (08/12/16) Reason - other. <<STRICKEN ENTRY-- None. --05:38 Dea Kaufman --END STRIKE>>. Allergies morphine. --05:38 Dea Kaufman Lyrica. --05:39 Dea Kaufman. History Arrived by private vehicle. Historian: patient. Accompanied by family. ( This is pt's second visit for same, sts he got home and is still sick, not keeping down his meds). SOCIAL HX: Heavy tobacco smoker (cigarette)- 1 pack per day. 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 (8 years ago). --05:40 Dea Kaufman. PROBLEMS: Abscess. GI Bleeding. Bursitis. Chronic Back Pain. Folliculitis. Depression. Headache. Back Pain. Neck Pain. --05:39 Dea Kaufman. ADDITIONAL SURGERIES: Appendectomy. Back Surgery. --05:39 Dea Kaufman. Interventions ID band on patient. To treatment room. --05:40 Dea Kaufman. PHYSICAL ASSESSMENT To room via wheelchair. Patient not gowned. GENERAL / NEURO / PSYCH: Alert. Oriented X 4. Appears in no acute distress. HEENT: Pupils equal, round and reactive to light. Mucous membranes are pink. RESPIRATORY: Respirations not labored. Chest nontender. Breath sounds within normal limits. CVS: Normal sinus rhythm noted. Capillary refill less than 2 seconds. Pulses within normal limits. GI / : The patient has had nausea and diarrhea. Emesis noted. Abdomen soft and nontender. SKIN: Skin intact. Skin is warm and dry. Normal skin turgor. --05:41 Dea Kaufman. NURSING PROGRESS NOTES 06:33 08/12/16. BP: 110/80 taken while standing. HR: 80. --06:34 Dea Kaufman 07:36 08/12/16. Patient and family informed about reason for wait and about plan of care. --07:36 Dipak Abel R.N. 07:37 08/12/16. BP: 108/68. HR: 78. RR: 14. O2 saturation: 99% on room air. Temp: 98.1 F (oral). --07:37 Dipak Abel R.N. 07:37 08/12/16. --07:37 Dipak Abel R.N. 08:03 08/12/2016 Site #1 started via IV in the right foot with an 24g angiocath, with aseptic technique; one attempt. Saline lock flushed with 10 mL saline (Unable to draw blood, site flushes well). --08:13 Dipak Abel R.N. 08:09 08/12/2016 Started bag #1 1000 mL IV Fluids IV NS (Saline); at 1000 mL/hr over 1 hour(s) via site #1. Allergies verified and confirmed 5 rights. IV patency established. IV site checked: no pain, redness, or swelling. IV flushed thoroughly pre- and post-medication administration. Completed per protocol. --08:14 Dipak Abel R.N. 08:09 08/12/2016 Zofran (Ondansetron HCl) IVP 4 mg given over 2 minute(s) via site #1. Allergies verified and confirmed 5 rights. IV patency established. IV site checked: no pain, redness, or swelling. IV flushed thoroughly pre- and post-medication administration. IVP given by RN. --08:14 Dipak Abel R.N. <<STRICKEN ENTRY-- 08:15 08/12/16. Patient ID band checked for patient name and birthdate. Clean catch urine collected with return of mandy-colored urine; sample sent to lab for urinalysis and HCG. Specimen labeled in the presence of the patient. --08:15 Dipak Abel R.N. --END STRIKE>> Correction --08:16 Dipak Abel R.N. 08:15 08/12/16. Patient ID band checked for patient name and birthdate. Clean catch urine collected with return of mandy-colored urine; sample sent to lab for urinalysis and drug screen. Specimen labeled in the presence of the patient. --08:17 Dipak Abel R.N. 08:17 08/12/16. Patient and family informed about reason for wait and about plan of care. --08:17 Dipak Abel R.N. 08:21 08/12/16. Patient and family informed about reason for wait and about plan of care. --08:21 Dipak Abel R.N. 08:59 08/12/16. ( Pt upset he is not getting pain meds, informed pt to see PCP today and try to get a referral for pain clinic.). --08:59 Dipak Abel R.N. DISPOSITION / DISCHARGE 08:45 08/12/2016 IV Fluids IV NS Discontinued: bag #1 infused upon discharge. Total amount infused: 500 mL. IV patency established. IV site checked: no pain, redness, or swelling. IV flushed thoroughly. --08:50 Dipak Abel R.N. 08:49 08/12/2016 Site #1 removed upon discharge. Catheter intact. Bandaid applied. --08:49 iDpak Abel R.N. 08:50 08/12/16. Condition at departure: improved. The goals identified in the patient's plan of care were met. No learning barriers present. Discharge instructions provided and reviewed with the patient. Reviewed warnings. Reviewed medication(s). Treatments reviewed. Patient verbalized understanding. Written instructions provided in Kinyarwanda. The patient was discharged by the physician. He was discharged home and accompanied by family. He left the Emergency Department ambulatory and via private vehicle. Family member driving. FALL RISK ASSESSMENT: Fall risk assessment completed. No fall risk identified. --08:50 Dipak Abel R.N. 08:49 08/12/16. BP: 106/72. HR: 78. RR: 12. O2 saturation: 99% on room air. Temp: 98.2 F (oral). --08:50 Dipak Abel R.N. 08:59 08/12/16. Departure time: 08:59. --08:59 Dipak Abel R.N. Locked/Released at 08/12/2016 9:51 by Dipak Abel R.N.
--- NOTE | 2016-08-12 08:40 | ED ORDER SUMMARY ---
..... Patient: THERESA ORTIZ OrderSheet [facility] VisitID: [id number] [place] [address] 51y, M Registration Date/Time: 08/12/2016 ORDER SHEET Weight: 68.0 kg Allergies: morphine, Lyrica GENERAL ORDERS: CBC w Diff Urgent (06:00 08/12/2016 Zakiya PEREZ) (Ack 7:05 LMuller) (7:45 LMuller) CMP Urgent (06:00 08/12/2016 Zakiya PEREZ) (Ack 7:05 LMuller) (7:45 LMuller) UA-Culture if indicated Urgent (06:00 08/12/2016 Zakiya PEREZ) (Ack 7:05 LMuller) (8:14 JBoardley R.N.) Amylase Urgent (06:00 08/12/2016 Zakiya PEREZ) (Ack 7:05 LMuller) (7:45 LMuller) Lipase Urgent (06:00 08/12/2016 Zakiya PEREZ) (Ack 7:05 LMuller) (7:45 LMuller) Urine Drug Screen Urgent (06:00 08/12/2016 Zakiya PEREZ) (Ack 7:05 LMuller) (8:13 JBoardley R.N.) MEDICATION ORDERS: IV FLUIDS: IV NS : initial bolus 1000 mL (1000 mL/hr), then 1000 mL/hr for 4h (NOW); Urgent (05:59 08/12/2016 Zakiya PEREZ) (Ack 7:36 JBoardley R.N.) (8:14 JBoardley R.N.) Zofran IV 4 mg (NOW) (06:00 08/12/2016 Zakiya PEREZ) (Ack 7:36 JBoardley R.N.) (8:14 JBoardley R.N.) ORDER SHEET NOTES: [Electronically signed by Ron Lang MD (09:14 08/12/2016)] [Electronically signed by Dipak Abel R.N. (09:51 08/12/2016)] [Electronically locked/signed by Dipak Abel R.N. (09:51 08/12/2016)]
--- NOTE | 2016-08-12 09:52 | ED MAR SUMMARY ---
..... Medication Administration Record [facility] [address] [place] [address] Patient: THERESA ORTIZ Visit ID: [id number] 51y, M Weight: 68.0 kg Height/Length: 70 in BMI: 21.5 ALLERGIES: Lyrica, morphine Start 08:09 08/12/2016 Dipak Abel R.N., Stop 08:45 08/12/2016 Dipak Abel R.N. Medication Administered: IV NS (SALINE), Dose: IV Fluids over 1 hour(s), Rate: 1000 mL/hr, Dispensed: 1000 mL bag, Site: #1 right foot. Medication Ordered: IV NS : initial bolus 1000 mL (1000 mL/hr), then 1000 mL/hr for 4h (NOW); Urgent. Given 08:09 08/12/2016 Dipak Abel R.N. Medication Administered: ZOFRAN [IVP] (ONDANSETRON HCL), Dose: 4 mg IVP over 2 minute(s), Site: #1 right foot. Medication Ordered: Zofran IV 4 mg (NOW).
--- NOTE | 2016-08-12 09:52 | ED MED RECONCILIATION SUMMARY ---
Patient: THERESA ORTIZ Medication Reconciliation Report [facility] VisitID: [id number] [address] [place] [address] 51y, M Registration Date/Time: 08/12/2016 Weight: 68.0 kg Height/Length: 70 in. BMI: 21.5 ALLERGIES: Lyrica, morphine The patient's Home Medications are listed below: THE FOLLOWING MEDICATIONS NEED TO BE RECONCILED: Tylenol with Codeine #3 Oral Valium Oral, old rx from back surgery Zofran Oral The source(s) of the original Home Medication information: Not obtained. The following Medications were given to the patient in the Emergency Department: IV NS IV Fluids bolus 0, then 1000 mL/hr, administered: 08/12/2016 8:09:00 AM Zofran [IVP] IVP 4 mg, administered: 08/12/2016 8:09:00 AM The following Medications were prescribed to the patient: Phenergan 25 mg suppositories: insert 1 rectally every 6 hours as needed for nausea. Dispense five (5). No refill. Substitution is permissible -- Ron Lang MD
--- NOTE | 2016-08-12 09:52 | ED DISCHARGE INSTRUCTIONS ---
Patient: THERESA ORTIZ General Instructions [facility] VisitID: [id number] [address] [place] [address] 51y, M Registration Date/Time: 08/12/2016 Abdominal pain of undetermined cause. INSTRUCTIONS No driving or operating machinery while taking medication. Drink plenty of fluids. (may continue the use of your Tylenol with Codeine and Zofran as previously prescribed as discussed.). Warnings: Further evaluation is necessary. Prescription Medications: Phenergan 25 mg suppositories: insert 1 rectally every 6 hours as needed for nausea. Dispense five (5). No refill. Substitution is permissible Understanding of the discharge instructions verbalized by patient. Follow-up with: [facility], , , [address], , [place], [address] Follow up today. Call for the next available appointment. ADDITIONAL INFORMATION Promethazine Hydrochloride Rectal suppository What is this medicine? PROMETHAZINE (proe METH a zeen) is an antihistamine. It is used to treat allergic reactions and to treat or prevent nausea and vomiting from illness or motion sickness. It is also used to make you sleep before surgery, and to help treat pain or nausea after surgery. How should I use this medicine? This medicine is for rectal use only. Do not take by mouth. Wash your hands before and after use. Take off the foil wrapping. Wet the tip of the suppository with cold tap water to make it easier to use. Lie on your side with your lower leg straightened out and your upper leg bent forward toward your stomach. Lift upper buttock to expose the rectal area. Apply gentle pressure to insert the suppository completely into the rectum, pointed end first. Hold buttocks together for a few seconds. Remain lying down for about 15 minutes to avoid having the suppository come out. Do not use more often than directed. Talk to your bread panner regarding the use of this medicine in children. Special care may be needed. This medicine should not be given to infants and children younger than 2 years old. What side effects may I notice from receiving this medicine? Side effects that you should report to your doctor or health healthcare administrator as soon as possible: blurred vision irregular heartbeat, palpitations or chest pain muscle or facial twitches pain or difficulty passing urine seizures skin rash slowed or shallow breathing unusual bleeding or bruising yellowing of the eyes or skin Side effects that usually do not require medical attention (report to your doctor or health healthcare administrator if they continue or are bothersome): headache nightmares, agitation, nervousness, excitability, not able to sleep (these are more likely in children) stuffy nose What may interact with this medicine? Do not take this medicine with any of the following medications: medicines called MAO Inhibitors like Nardil, Parnate, Marplan, Eldepryl other phenothiazines like trimethobenzamide This medicine may also interact with the following medications: barbiturates such as phenobarbital bromocriptine certain antidepressants certain antihistamines used in allergy or cold medicines epinephrine levodopa medicines for sleep medicines for mental problems and psychotic disturbances medicines for movement abnormalities as in Parkinson's disease, or for gastrointestinal problems muscle relaxants prescription pain medicines What if I miss a dose? If you miss a dose, use it as soon as you can. If it is almost time for your next dose, use only that dose. Do not use double doses. Where should I keep my medicine? Keep out of the reach of children. Store in a refrigerator between 2 and 8 degrees C (36 and 46 degrees F). Throw away any unused medicine after the expiration date. What should I tell my health care provider before I take this medicine? They need to know if you have any of these conditions: glaucoma high blood pressure or heart disease kidney disease liver disease lung or breathing disease, like asthma prostate trouble pain or difficulty passing urine seizures an unusual or allergic reaction to promethazine or phenothiazines, other medicines, foods, dyes, or preservatives or trying to get breast-feeding What should I watch for while using this medicine? Tell your doctor or health healthcare administrator if your symptoms do not start to get better in 1 to 2 days. You may get drowsy or dizzy. Do not drive, use machinery, or do anything that needs mental alertness until you know how this medicine affects you. To reduce the risk of dizzy or fainting spells, do not stand or sit up quickly, especially if you are an older patient. Alcohol may increase dizziness and drowsiness. Avoid alcoholic drinks. Your mouth may get dry. Chewing sugarless gum or sucking hard candy, and drinking plenty of water may help. Contact your doctor if the problem does not go away or is severe. This medicine may cause dry eyes and blurred vision. If you wear contact lenses you may feel some discomfort. Lubricating drops may help. See your eye doctor if the problem does not go away or is severe. This medicine can make you more sensitive to the sun. Keep out of the sun. If you cannot avoid being in the sun, wear protective clothing and use sunscreen. Do not use sun lamps or tanning beds/booths. If you are diabetic, check your blood-sugar levels regularly. You have been given the following additional information: Promethazine Hydrochloride Rectal suppository No driving or operating machinery while taking medication. (Electronically signed by Ron Lang MD 08/12/2016 9:14)
--- NOTE | 2016-08-12 09:52 | ED MAR SUMMARY ---
..... Medication Administration Record [facility] [address] [place] [address] Patient: THERESA ORTIZ Visit ID: [id number] 51y, M Weight: 68.0 kg Height/Length: 70 in BMI: 21.5 ALLERGIES: Lyrica, morphine Start 08:09 08/12/2016 Dipak Abel R.N., Stop 08:45 08/12/2016 Dipak Abel R.N. Medication Administered: IV NS (SALINE), Dose: IV Fluids over 1 hour(s), Rate: 1000 mL/hr, Dispensed: 1000 mL bag, Site: #1 right foot. Medication Ordered: IV NS : initial bolus 1000 mL (1000 mL/hr), then 1000 mL/hr for 4h (NOW); Urgent. Given 08:09 08/12/2016 Dipak Abel R.N. Medication Administered: ZOFRAN [IVP] (ONDANSETRON HCL), Dose: 4 mg IVP over 2 minute(s), Site: #1 right foot. Medication Ordered: Zofran IV 4 mg (NOW).
--- NOTE | 2016-08-12 09:52 | ED MED RECONCILIATION SUMMARY ---
Patient: THERESA ORTIZ Medication Reconciliation Report [facility] VisitID: [id number] [address] [place] [address] 51y, M Registration Date/Time: 08/12/2016 Weight: 68.0 kg Height/Length: 70 in. BMI: 21.5 ALLERGIES: Lyrica, morphine The patient's Home Medications are listed below: THE FOLLOWING MEDICATIONS NEED TO BE RECONCILED: Tylenol with Codeine #3 Oral Valium Oral, old rx from back surgery Zofran Oral The source(s) of the original Home Medication information: Not obtained. The following Medications were given to the patient in the Emergency Department: IV NS IV Fluids bolus 0, then 1000 mL/hr, administered: 08/12/2016 8:09:00 AM Zofran [IVP] IVP 4 mg, administered: 08/12/2016 8:09:00 AM The following Medications were prescribed to the patient: Phenergan 25 mg suppositories: insert 1 rectally every 6 hours as needed for nausea. Dispense five (5). No refill. Substitution is permissible -- Ron Lang MD
--- NOTE | 2016-08-12 09:52 | ED DISCHARGE INSTRUCTIONS ---
Patient: THERESA ORTIZ General Instructions [facility] VisitID: [id number] [address] [place] [address] 51y, M Registration Date/Time: 08/12/2016 Abdominal pain of undetermined cause. INSTRUCTIONS No driving or operating machinery while taking medication. Drink plenty of fluids. (may continue the use of your Tylenol with Codeine and Zofran as previously prescribed as discussed.). Warnings: Further evaluation is necessary. Prescription Medications: Phenergan 25 mg suppositories: insert 1 rectally every 6 hours as needed for nausea. Dispense five (5). No refill. Substitution is permissible Understanding of the discharge instructions verbalized by patient. Follow-up with: [facility], , , [address], , [place], [address] Follow up today. Call for the next available appointment. ADDITIONAL INFORMATION Promethazine Hydrochloride Rectal suppository What is this medicine? PROMETHAZINE (proe METH a zeen) is an antihistamine. It is used to treat allergic reactions and to treat or prevent nausea and vomiting from illness or motion sickness. It is also used to make you sleep before surgery, and to help treat pain or nausea after surgery. How should I use this medicine? This medicine is for rectal use only. Do not take by mouth. Wash your hands before and after use. Take off the foil wrapping. Wet the tip of the suppository with cold tap water to make it easier to use. Lie on your side with your lower leg straightened out and your upper leg bent forward toward your stomach. Lift upper buttock to expose the rectal area. Apply gentle pressure to insert the suppository completely into the rectum, pointed end first. Hold buttocks together for a few seconds. Remain lying down for about 15 minutes to avoid having the suppository come out. Do not use more often than directed. Talk to your media professional regarding the use of this medicine in children. Special care may be needed. This medicine should not be given to infants and children younger than 2 years old. What side effects may I notice from receiving this medicine? Side effects that you should report to your doctor or health special needs caregiver as soon as possible: blurred vision irregular heartbeat, palpitations or chest pain muscle or facial twitches pain or difficulty passing urine seizures skin rash slowed or shallow breathing unusual bleeding or bruising yellowing of the eyes or skin Side effects that usually do not require medical attention (report to your doctor or health special needs caregiver if they continue or are bothersome): headache nightmares, agitation, nervousness, excitability, not able to sleep (these are more likely in children) stuffy nose What may interact with this medicine? Do not take this medicine with any of the following medications: medicines called MAO Inhibitors like Nardil, Parnate, Marplan, Eldepryl other phenothiazines like trimethobenzamide This medicine may also interact with the following medications: barbiturates such as phenobarbital bromocriptine certain antidepressants certain antihistamines used in allergy or cold medicines epinephrine levodopa medicines for sleep medicines for mental problems and psychotic disturbances medicines for movement abnormalities as in Parkinson's disease, or for gastrointestinal problems muscle relaxants prescription pain medicines What if I miss a dose? If you miss a dose, use it as soon as you can. If it is almost time for your next dose, use only that dose. Do not use double doses. Where should I keep my medicine? Keep out of the reach of children. Store in a refrigerator between 2 and 8 degrees C (36 and 46 degrees F). Throw away any unused medicine after the expiration date. What should I tell my health care provider before I take this medicine? They need to know if you have any of these conditions: glaucoma high blood pressure or heart disease kidney disease liver disease lung or breathing disease, like asthma prostate trouble pain or difficulty passing urine seizures an unusual or allergic reaction to promethazine or phenothiazines, other medicines, foods, dyes, or preservatives or trying to get breast-feeding What should I watch for while using this medicine? Tell your doctor or health special needs caregiver if your symptoms do not start to get better in 1 to 2 days. You may get drowsy or dizzy. Do not drive, use machinery, or do anything that needs mental alertness until you know how this medicine affects you. To reduce the risk of dizzy or fainting spells, do not stand or sit up quickly, especially if you are an older patient. Alcohol may increase dizziness and drowsiness. Avoid alcoholic drinks. Your mouth may get dry. Chewing sugarless gum or sucking hard candy, and drinking plenty of water may help. Contact your doctor if the problem does not go away or is severe. This medicine may cause dry eyes and blurred vision. If you wear contact lenses you may feel some discomfort. Lubricating drops may help. See your eye doctor if the problem does not go away or is severe. This medicine can make you more sensitive to the sun. Keep out of the sun. If you cannot avoid being in the sun, wear protective clothing and use sunscreen. Do not use sun lamps or tanning beds/booths. If you are diabetic, check your blood-sugar levels regularly. You have been given the following additional information: Promethazine Hydrochloride Rectal suppository No driving or operating machinery while taking medication. (Electronically signed by Ron Lang MD 08/12/2016 9:14)
== END 2016-08-12 08:59 | disposition home or self-care (01) ==
LOC: ED SRH 05:28
DX: R10.9 Unspecified abdominal pain (principal); F17.210 Nicotine dependence, cigarettes, uncomplicated; Z88.5 Allergy status to narcotic agent; Z88.8 Allergy status to other drugs, medicaments and biological substances
CPT/HCPCS: 90004; 90074; 90100; 92235; 92530; 92760; 92761; 92762; 92763; 92764; 92765; 92766; 92767; 95059

== ENCOUNTER → 2016-09-10 | Emergency (ER) | payer OTHER ==
--- NOTE | 2016-09-10 12:58 | DIAGNOSTIC IMAGING REPORT ---
PROCEDURE: CT ABD/PELVIS WITH CONTRAST CLINICAL INDICATION: Kicked by a horse, initial encounter TECHNIQUE: 100 ml of Isovue 300 were injected intravenously and axial images were obtained of the entire abdomen and pelvis with sagittal and coronal reformations. COMPARISON: None. FINDINGS: ABDOMEN: Minor right basilar atelectasis. Heart size is normal. Intact liver and spleen without laceration or hematoma. No free fluid or free air. Stable 1 cm left hepatic lobe cyst and several additional hypoenhancing lesions most consistent with hemangiomas. The gallbladder, pancreas and adrenal glands are normal. Bilateral renal cysts. Retroaortic left renal vein. Minor calcific atherosclerosis of the aorta. Small hiatal hernia. Mild distention of the small bowel. No evidence of a ventral wall contusion. PELVIS: Status post appendectomy. Mildly enlarged prostate. Normal bladder. Chronic mild T12 and L1 wedge compression fractures. Moderate L5-S1 degenerative changes. IMPRESSION: 1. No evidence of a ventral wall contusion 2. Stable left hepatic lobe cysts and hepatic probable hemangiomas 3. Small hiatal hernia 4. Mild distention of small bowel, ileus versus enteritis 5. Results discussed with Dr. Norman All CT scans at this facility use dose modulation, iterative reconstruction, and/or weight-based dosing when appropriate to reduce radiation dose to as low as reasonably achievable.
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
--- NOTE | 2016-09-10 12:59 | ED ORDER SUMMARY ---
..... Patient: THERESA ORTIZ OrderSheet [facility] VisitID: [id number] [address] [place] [address] 51y, M Registration Date/Time: 09/10/2016 ORDER SHEET Weight: 63.5 kg (estimated) Allergies: morphine, Lyrica GENERAL ORDERS: CT Abd/Pel w Cont (No) (N/A) Urgent (11:09/10/2016 Karl PEREZ) (Ack 11:21 Artur) (12:50 KKnebel R.N.) CBC w Diff Urgent (11:09/10/2016 Karl PEREZ) (Ack 11:21 Artur) (11:27 KKnebel R.N.) CMP Urgent (11:09/10/2016 Karl PEREZ) (Ack 11:21 Artur) (11:28 KKnebel R.N.) Lipase Urgent (11:09/10/2016 Karl PEREZ) (Ack 11:21 Artur) (11:27 KKnebel R.N.) UA-Culture if indicated Urgent (11:09/10/2016 Karl PEREZ) (Ack 11:21 Artur) (Cancelled: Other12:58 Karl PEREZ) MEDICATION ORDERS: Phenergan IV 25 mg (HIGH ALERT MEDICATION, NOW) (13:44 09/10/2016 Karl PEREZ) (14:00 KKnebel R.N.) IV FLUIDS: IV NS : initial bolus 1000 mL (1000 mL/hr), then none - (NOW) (11:09/10/2016 Karl PEREZ) (11:37 KKnebel R.N.) Zofran IV 8 mg (NOW) (11:09/10/2016 Karl PEREZ) (11:37 KKnebel R.N.) Dilaudid IV 1 mg (HIGH ALERT MEDICATION, NOW) (11:20 09/10/2016 Karl PEREZ) (11:39 KKnebel R.N.) Dilaudid IV 1 mg (HIGH ALERT MEDICATION, NOW) (12:49 09/10/2016 Karl PEREZ) (12:55 KKnebel R.N.) Benadryl IV 12.5 mg (NOW) (13:45 09/10/2016 Karl PEREZ) (14:00 Merary Lewis) ORDER SHEET NOTES: [Electronically signed by Juliette Briseno R.N. (16:38 09/10/2016)] [Electronically signed by Di Norman MD (07:53 09/14/2016)] [Electronically locked/signed by Juliette Briseno R.N. (16:38 09/10/2016)]
--- NOTE | 2016-09-10 12:59 | ED ORDER SUMMARY ---
..... Patient: THERESA ORTIZ OrderSheet [facility] VisitID: [id number] [address] [place] [address] 51y, M Registration Date/Time: 09/10/2016 ORDER SHEET Weight: 63.5 kg (estimated) Allergies: morphine, Lyrica GENERAL ORDERS: CT Abd/Pel w Cont (No) (N/A) Urgent (11:09/10/2016 Karl PEREZ) (Ack 11:21 Artur) (12:50 KKnebel R.N.) CBC w Diff Urgent (11:09/10/2016 Kalr PEREZ) (Ack 11:21 Artur) (11:27 KKnebel R.N.) CMP Urgent (11:09/10/2016 Karl PEREZ) (Ack 11:21 Artur) (11:28 KKnebel R.N.) Lipase Urgent (11:09/10/2016 Karl PEREZ) (Ack 11:21 Artur) (11:27 KKnebel R.N.) UA-Culture if indicated Urgent (11:09/10/2016 Karl PEREZ) (Ack 11:21 Artur) (Cancelled: Other12:58 Karl PEREZ) MEDICATION ORDERS: Phenergan IV 25 mg (HIGH ALERT MEDICATION, NOW) (13:44 09/10/2016 Karl PEREZ) (14:00 KKnebel R.N.) IV FLUIDS: IV NS : initial bolus 1000 mL (1000 mL/hr), then none - (NOW) (11:09/10/2016 Karl PEREZ) (11:37 KKnebel R.N.) Zofran IV 8 mg (NOW) (11:09/10/2016 Karl PEREZ) (11:37 KKnebel R.N.) Dilaudid IV 1 mg (HIGH ALERT MEDICATION, NOW) (11:20 09/10/2016 Karl PEREZ) (11:39 KKnebel R.N.) Dilaudid IV 1 mg (HIGH ALERT MEDICATION, NOW) (12:49 09/10/2016 Karl PEREZ) (12:55 KKnebel R.N.) Benadryl IV 12.5 mg (NOW) (13:45 09/10/2016 Karl PEREZ) (14:00 Merary Lewis) ORDER SHEET NOTES: [Electronically signed by Juliette Briseno R.N. (16:38 09/10/2016)] [Electronically signed by Di Norman MD (07:53 09/14/2016)] [Electronically locked/signed by Juliette Briseno R.N. (16:38 09/10/2016)]
--- NOTE | 2016-09-14 07:54 | ED MAR SUMMARY ---
..... Medication Administration Record [facility] [address] [place] [address] Patient: THERESA ORTIZ Visit ID: [id number] 51y, M Weight: 63.5 kg Height/Length: 67 in BMI: 21.9 ALLERGIES: Lyrica, morphine Start 11:37 09/10/2016 Juliette Briseno R.N., Stop 13:46 09/10/2016 Juliette Briseno R.N. Medication Administered: IV NS (SALINE), Dose: IV Fluids, Bolus: 1000 mL over 1 hour(s), Dispensed: 1000 mL bag, Site: #1 right hand. Medication Ordered: IV NS : initial bolus 1000 mL (1000 mL/hr), then none - (NOW). Given 11:37 09/10/2016 Juliette Briseno R.N. Medication Administered: ZOFRAN [IVP] (ONDANSETRON HCL), Dose: 8 mg IVP over 2 minute(s), Site: #1 right hand. Medication Ordered: Zofran IV 8 mg (NOW). Given 11:39 09/10/2016 Juliette Briseno R.N. Medication Administered: DILAUDID [IVP] (HYDROMORPHONE HCL PF), Dose: 1 mg IVP over 2 minute(s), Site: #1 right hand. Medication Ordered: Dilaudid IV 1 mg (HIGH ALERT MEDICATION, NOW). Given 12:55 09/10/2016 Juliette Briseno R.N. Medication Administered: DILAUDID [IVP] (HYDROMORPHONE HCL PF), Dose: 1 mg IVP over 2 minute(s), Site: #1. Medication Ordered: Dilaudid IV 1 mg (HIGH ALERT MEDICATION, NOW). Given 13:48 09/10/2016 Juliette Briseno R.N. Medication Administered: BENADRYL [IVP] (DIPHENHYDRAMINE HCL), Dose: 12.5 mg IVP over 2 second(s), Site: #2 left hand. Medication Ordered: Benadryl IV 12.5 mg (NOW). Given 13:49 09/10/2016 Juleitte Briseno R.N. Medication Administered: PHENERGAN [IVP] (PROMETHAZINE HCL), Dose: 25 mg IVP over 2 minute(s), Site: #2. Medication Ordered: Phenergan IV 25 mg (HIGH ALERT MEDICATION, NOW).
--- NOTE | 2016-09-14 07:54 | ED DISCHARGE INSTRUCTIONS ---
Patient: THERESA ORTIZ General Instructions [facility] VisitID: [id number] [place] [address] 51y, M Registration Date/Time: 09/10/2016 Acute viral gastroenteritis. INSTRUCTIONS (Your labs and CT scan look good. There is no evidence of trauma to your abdomen, or the wall or your abdomen. You likely have a viral illness that is causing your vomiting and diarrhea. Please take the medication for this, as prescribed, and see your primary doctor for any further medication needs.). Warnings: SEDATIVE MEDICATION: You were given sedative medication during your visit. Do not drive or operate dangerous machinery for 6 hours. GENERAL WARNINGS: Return or contact your physician immediately if your condition worsens or changes unexpectedly, if not improving as expected, or if other problems arise. Your Current Medications: CONTINUE TAKING THE FOLLOWING MEDICATIONS: Valium Oral. Prescription Medications: Hydrocodone/APAP 7.5mg / 325mg: take 1 orally every 8 hours as needed for pain. No refill. (disp #2 (two)) Zofran (orally disintegrating tablets) 4 mg: take 1-2 orally every 6 hours as needed for nausea. Dispense ten (10). No refill. Substitution is permissible. Follow-up: Follow up with your doctor as needed. Call for an appointment. Understanding of the discharge instructions verbalized by patient. ADDITIONAL INFORMATION Viral Gastroenteritis (6Yr-Adult) Gastroenteritis is another name for thestomach flu.It is most often caused by a virus that affects the stomach and intestinal tract. Symptoms include stomach cramping and fever, vomiting and/or diarrhea, and can last from 2 to 7 days. The danger from repeated vomiting or diarrhea is dehydration. This is the loss of too much water and minerals from the body. When this occurs, body fluids must be replaced. Antibiotics are not effective for this illness, but simple home treatment will be helpful. Home Care If symptoms are severe, rest at home for the next 24 hours. Avoid tobacco, caffeine, and alcohol use, which can worsen symptoms. Acetaminophen (Tylenol) or ibuprofen (Motrin, Advil) may be usedfor fever or pain unless another medication was prescribed. NOTE: If you have chronic liver or kidney disease or ever had a stomach ulcer or GI bleeding, talk with your doctor before using these medicines. Aspirin should never be used in anyone under 18 years of age who is ill with a fever. It may cause severe liver damage. If medicines for diarrhea or vomiting were prescribed, be sure they are takenonly as directed. If vomiting, drink small amounts of clear fluids (such as water, sports drinks, clear sodas) at frequent intervals to prevent dehydration. Start with 1 to 2 tablespoons every 10 minutes. Once vomiting stops, follow these guidelines: During The First 12 To 24 Hours follow the diet below: Beverages: Sport drinks like Gatorade, soft drinks without caffeine; uriel delano, mineral water (plain or flavored), decaffeinated tea and coffee. Soups: Clear broth, consomm and bouillon Desserts: Plain gelatin (Jell-O), Popsicles and fruit juice bars. During The Next 24 Hours you may add the following to the above: Hot cereal, plain toast, bread, rolls, crackers Plain noodles, rice, mashed potatoes, chicken noodle or rice soup Unsweetened canned fruit (avoid pineapple), bananas Limit fat intake to less than 15 grams per day by avoiding margarine, butter, oils, mayonnaise, sauces, gravies, fried foods, peanut butter, meat, poultry, and fish. Limit fiber; avoid raw or cooked vegetables, fresh fruits (except bananas), and bran cereals. Limit caffeine and chocolate. Do not use spices or seasonings except salt. During The Next 24 Hours The patient can gradually resume a normal diet as symptoms lessen. Preventing Spread Hand washing with soap and water is the best way to prevent the spread of viruses. Caregivers should wash their hands before andafter touching the sick person. The sick person, as well as everyone in the family,should wash their hands after using the toilet and before meals. Clean the toilet after each use. People with diarrhea should not prepare food for others. If you are preparing your own foods, wash your hands before and after. Follow Up with your doctor as advised. Call your doctor if you are not improving over the next 2 to 3 days. If a stool (diarrhea) sample was taken, you may call in 2 days (or as directed) for the results. Get Prompt Medical Attention if any of the following occur: Increasing abdominal pain Continued vomiting (unable to keep liquids down) Frequent diarrhea (more than 5 times a day) Blood in vomit or stool (black or red color) Dark urine, reduced urine output, or extreme thirst Weakness, dizziness, fainting Drowsiness, confusion, stiff neck, or seizure Fever of 100.4F (38C) oral or higher, not better with fever medication New rash You have been given the following additional information: Gastroenteritis, Viral (6Y-Adult) (Electronically signed by Di Norman MD 09/14/2016 7:53)
--- NOTE | 2016-09-14 07:54 | ED MAR SUMMARY ---
..... Medication Administration Record [facility] [address] [place] [address] Patient: THERESA ORTIZ Visit ID: [id number] 51y, M Weight: 63.5 kg Height/Length: 67 in BMI: 21.9 ALLERGIES: Lyrica, morphine Start 11:37 09/10/2016 Juliette Briseno R.N., Stop 13:46 09/10/2016 Juliette Briseno R.N. Medication Administered: IV NS (SALINE), Dose: IV Fluids, Bolus: 1000 mL over 1 hour(s), Dispensed: 1000 mL bag, Site: #1 right hand. Medication Ordered: IV NS : initial bolus 1000 mL (1000 mL/hr), then none - (NOW). Given 11:37 09/10/2016 Juliette Briseno R.N. Medication Administered: ZOFRAN [IVP] (ONDANSETRON HCL), Dose: 8 mg IVP over 2 minute(s), Site: #1 right hand. Medication Ordered: Zofran IV 8 mg (NOW). Given 11:39 09/10/2016 Juliette Briseno R.N. Medication Administered: DILAUDID [IVP] (HYDROMORPHONE HCL PF), Dose: 1 mg IVP over 2 minute(s), Site: #1 right hand. Medication Ordered: Dilaudid IV 1 mg (HIGH ALERT MEDICATION, NOW). Given 12:55 09/10/2016 Juliette Briseno R.N. Medication Administered: DILAUDID [IVP] (HYDROMORPHONE HCL PF), Dose: 1 mg IVP over 2 minute(s), Site: #1. Medication Ordered: Dilaudid IV 1 mg (HIGH ALERT MEDICATION, NOW). Given 13:48 09/10/2016 Juliette Briseno R.N. Medication Administered: BENADRYL [IVP] (DIPHENHYDRAMINE HCL), Dose: 12.5 mg IVP over 2 second(s), Site: #2 left hand. Medication Ordered: Benadryl IV 12.5 mg (NOW). Given 13:49 09/10/2016 Juliette Briseno R.N. Medication Administered: PHENERGAN [IVP] (PROMETHAZINE HCL), Dose: 25 mg IVP over 2 minute(s), Site: #2. Medication Ordered: Phenergan IV 25 mg (HIGH ALERT MEDICATION, NOW).
--- NOTE | 2016-09-14 07:54 | ED MED RECONCILIATION SUMMARY ---
Patient: THERESA ORTIZ Medication Reconciliation Report [facility] VisitID: [id number] [address] [place] [address] 51y, M Registration Date/Time: 09/10/2016 Weight: 63.5 kg Height/Length: 67 in. BMI: 21.9 ALLERGIES: Lyrica, morphine The patient's Home Medications are listed below: CONTINUE TAKING THE FOLLOWING MEDICATIONS: Valium Oral The source(s) of the original Home Medication information: patient The following Medications were given to the patient in the Emergency Department: IV NS IV Fluids bolus 1000 mL over 1 hour(s), administered: 09/10/2016 11:37:00 AM Zofran [IVP] IVP 8 mg, administered: 09/10/2016 11:37:00 AM Dilaudid [IVP] IVP 1 mg, administered: 09/10/2016 11:39:00 AM Dilaudid [IVP] IVP 1 mg, administered: 09/10/2016 12:55:00 PM PHENERGAN [IVP] IVP 25 mg, administered: 09/10/2016 1:49:00 PM Benadryl [IVP] IVP 12.5 mg, administered: 09/10/2016 1:48:00 PM The following Medications were prescribed to the patient: Hydrocodone/APAP 7.5mg / 325mg: take 1 orally every 8 hours as needed for pain. No refill.(disp #2 (two)) -- Di Norman MD Zofran (orally disintegrating tablets) 4 mg: take 1-2 orally every 6 hours as needed for nausea. Dispense ten (10). No refill. Substitution is permissible. -- Di Norman MD
--- NOTE | 2016-09-14 07:54 | ED MED RECONCILIATION SUMMARY ---
Patient: THERESA ORTIZ Medication Reconciliation Report [facility] VisitID: [id number] [address] [place] [address] 51y, M Registration Date/Time: 09/10/2016 Weight: 63.5 kg Height/Length: 67 in. BMI: 21.9 ALLERGIES: Lyrica, morphine The patient's Home Medications are listed below: CONTINUE TAKING THE FOLLOWING MEDICATIONS: Valium Oral The source(s) of the original Home Medication information: patient The following Medications were given to the patient in the Emergency Department: IV NS IV Fluids bolus 1000 mL over 1 hour(s), administered: 09/10/2016 11:37:00 AM Zofran [IVP] IVP 8 mg, administered: 09/10/2016 11:37:00 AM Dilaudid [IVP] IVP 1 mg, administered: 09/10/2016 11:39:00 AM Dilaudid [IVP] IVP 1 mg, administered: 09/10/2016 12:55:00 PM PHENERGAN [IVP] IVP 25 mg, administered: 09/10/2016 1:49:00 PM Benadryl [IVP] IVP 12.5 mg, administered: 09/10/2016 1:48:00 PM The following Medications were prescribed to the patient: Hydrocodone/APAP 7.5mg / 325mg: take 1 orally every 8 hours as needed for pain. No refill.(disp #2 (two)) -- Di Norman MD Zofran (orally disintegrating tablets) 4 mg: take 1-2 orally every 6 hours as needed for nausea. Dispense ten (10). No refill. Substitution is permissible. -- Di Norman MD
== END ==
LOC: ED SRH 11:04
DX: A08.4 Viral intestinal infection, unspecified (principal); Z88.5 Allergy status to narcotic agent; Z88.8 Allergy status to other drugs, medicaments and biological substances
CPT/HCPCS: 90074; 90100; 92235; 95059